=== PATIENT | female | born 1990 | race American Indian/Alaskan Native ===

== ENCOUNTER 2018-04-19 22:49 | Emergency (ER) | payer OTHER ==
[2018-04-19 23:33] LABS: Basophils % (Auto) 0.1 % (0.0-1.8); Hematocrit 34.9 % (30.3-42.9); Hemoglobin 11.9 gm/dl (10.1-14.3); Lymphocytes # (Auto) 1.3 K/mm3 (1.2-5.4); Lymphocytes % (Auto) 6.3 % (13.4-35.0); Mean Corpuscular HGB Conc 34 % (30-34); Mean Corpuscular Volume 89 fl (79-97); Monocytes # (Auto) 0.9 K/mm3 (0.0-0.8); Monocytes % (Auto) 4.5 % (0.0-7.3); Platelet Count 340 K/mm3 (140-440); Red Blood Count 3.92 M/mm3 (3.65-5.03); Red Cell Distribution Width 13.8 % (13.2-15.2)
[2018-04-19 23:55] LABS: BUN/Creatinine Ratio 13; Blood Urea Nitrogen 13 mg/dL (7-17); Calcium 8.7 mg/dL (8.4-10.2); Hemolysis Index 7
[2018-04-20] MEDS ORDERED: K-DUR PO ONE (00:02)
--- NOTE | 2018-04-20 00:07 | Emergency Department Report ---
ED Psych HPI - General Chief Complaint: Altered Mental Status Stated Complaint: ALTERED MENTAL STATUS Time Seen by Provider: 04/19/18 23:30 Source: EMS Mode of arrival: Stretcher - History of Present Illness Initial Comments: Patient is 28 years old female with history of bipolar. Patient presented to the ER crying stating that she is having trouble with her significant other and she feels very depressed. Patient is unable to give a comprehensive history. She is inappropriate crying. Patient is very paranoid. Patient is in obvious acute psychosis. When asked about visual or auditory hallucination patient denied. Patient also denies suicidal or homicidal ideation. MD Complaint: feels depressed, altered mental status Associated Psychiatric Symptoms: depression - Related Data Home Medications Medication Instructions Recorded Confirmed Last Taken No Known Home Medications [No 04/20/18 04/20/18 Unknown Reported Home Medications] Allergies Allergy/AdvReac Type Severity Reaction Status Date / Time No Known Allergies Allergy Unverified 04/19/18 23:02 ED Review of Systems ROS: Stated complaint: ALTERED MENTAL STATUS Other details as noted in HPI Comment: All other systems reviewed and negative Constitutional: denies: chills, fever Respiratory: denies: cough, orthopnea, shortness of breath, SOB with exertion, SOB at rest, wheezing Cardiovascular: palpitations. denies: chest pain, dyspnea on exertion Gastrointestinal: denies: abdominal pain, nausea, vomiting, diarrhea, constipation, hematemesis, hematochezia Musculoskeletal: denies: back pain Neurological: denies: headache, weakness, numbness, paresthesias, confusion Psychiatric: depression ED Past Medical Hx - Past Medical History Previous Medical History?: No - Social History Smoking Status: Current Every Day Smoker Substance Use Type: Alcohol, Other - Medications Home Medications: Home Medications Medication Instructions Recorded Confirmed Last Taken Type No Known Home Medications [No 04/20/18 04/20/18 Unknown History Reported Home Medications] ED Physical Exam - General Limitations: No Limitations General appearance: alert, in no apparent distress, anxious, other (agitated) - Head Head exam: Present: atraumatic, normocephalic, normal inspection - Eye Eye exam: Present: normal appearance - ENT ENT exam: Present: normal exam, normal orophraynx, mucous membranes moist - Neck Neck exam: Present: normal inspection, full ROM. Absent: tenderness, meningismus - Respiratory Respiratory exam: Present: normal lung sounds bilaterally. Absent: respiratory distress, wheezes, rales, rhonchi, accessory muscle use, prolonged expiratory - Cardiovascular Cardiovascular Exam: Present: tachycardia - GI/Abdominal GI/Abdominal exam: Present: soft, normal bowel sounds. Absent: distended, tenderness, guarding, rebound, rigid, bruit, pulsatile mass, hernia - Extremities Exam Extremities exam: Present: normal inspection, full ROM, normal capillary refill. Absent: pedal edema, calf tenderness - Back Exam Back exam: Present: normal inspection, full ROM - Neurological Exam Neurological exam: Present: alert, oriented X3, normal gait, reflexes normal - Psychiatric Psychiatric exam: Present: agitated, anxious, manic. Absent: homicidal ideation, suicidal ideation - Skin Skin exam: Present: warm, intact, normal color ED Course Vital Signs 04/19/18 04/19/18 04/19/18 23:17 23:31 23:45 Pulse Rate 111 H 116 H 113 H Respiratory 16 19 21 Rate Blood Pressure 108/63 O2 Sat by Pulse 93 100 Oximetry 04/20/18 04/20/18 04/20/18 00:00 00:15 00:30 Pulse Rate 123 H 109 H 102 H Respiratory 13 22 17 Rate Blood Pressure 126/78 126/78 105/58 O2 Sat by Pulse 100 Oximetry 04/20/18 04/20/18 04/20/18 00:45 01:00 01:15 Pulse Rate 98 H 96 H 87 Respiratory 19 19 15 Rate Blood Pressure 105/58 108/67 108/67 O2 Sat by Pulse Oximetry 04/20/18 01:30 Pulse Rate 91 H Respiratory 18 Rate Blood Pressure 104/62 O2 Sat by Pulse Oximetry ED Medical Decision Making - Lab Data Result diagrams: 04/19/18 23:18 04/19/18 23:18 - Medical Decision Making Patient is 28 years old female with history of bipolar. Patient presented to the ER crying stating that she is having trouble with her significant other and she feels very depressed. Patient is unable to give a comprehensive history. She is inappropriate crying. Patient is very paranoid. Patient is in obvious acute psychosis. When asked about visual or auditory hallucination patient denied. Patient also denies suicidal or homicidal ideation. Patient is medically clear for inpatient psychiatric admission for acute psychosis. Critical care attestation.: If time is entered above; I have spent that time in minutes in the direct care of this critically ill patient, excluding procedure time. ED Disposition Clinical Impression: Acute psychosis, Bipolar disorder Disposition: [id number] PSY HOSP/PSY UNIT Is pt being admited?: No Condition: Stable
--- NOTE | 2018-04-20 01:06 | XRay Report ---
FINAL REPORT PROCEDURE: XR CHEST 1V AP TECHNIQUE: Chest radiograph anteroposterior view. CPT 97562 HISTORY: cough COMPARISON: No prior studies are available for comparison. FINDINGS: Heart: Normal. Mediastinum/Vessels: Normal. Lungs/Pleural space: Normal. Bony thorax: No acute osseous abnormality. Life support devices: None. IMPRESSION: No acute cardiopulmonary abnormality.
[2018-04-20 01:21] LABS: Amphetamine Screen,Urine PRESUMPTIVE NEGATIVE; Benzodiazepines Screen,Urine PRESUMPTIVE NEGATIVE; Bilirubin,Urine NEG (Negative); Blood,Urine NEG (Negative); Cocaine Screen,Urine PRESUMPTIVE NEGATIVE; Color,Urine Yellow (Yellow); Methadone Screen,Urine PRESUMPTIVE NEGATIVE; Mucus,Urine FEW /HPF; Opiate Screen,Urine PRESUMPTIVE NEGATIVE; Urobilinogen,Urine < 2.0 mg/dL (<2.0)
[2018-04-20 03:01] LABS: Cannabinoid Screen,Urine PRESUMPTIVE POSITIVE
[2018-04-20] MEDS ORDERED: NACL 0.9% 500 ML IR ONE (06:03)
[2018-04-20] MEDS: PROzac PO SCH (14:00)
[2018-04-20] MEDS: VISTARIL PO SCH ×2 (14:00→22:06)
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
[2018-04-21 08:27] VITALS: BP 101/66
[2018-04-21] MEDS: VISTARIL PO SCH (11:00)
[2018-04-21] MEDS: PROzac PO SCH (11:00)
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
== END 2018-04-21 18:12 | disposition home or self-care (01) ==
LOC: ED 22:49 → EEVIPCON 22:49 → ED 04-21 18:12
DX: F23 Brief psychotic disorder (principal); F17.200 Nicotine dependence, unspecified, uncomplicated
CPT/HCPCS: 36415; 80048; 80307; 81001; 84703; 85025; 99284; G0480; 71045; 80320; Q0177